=== PATIENT | female | born 2000 | race Caucasian/White ===

== ENCOUNTER 2020-06-18 00:21 | Outpatient (CLI) | payer OTHER, SELFPAY ==
[2020-06-18 17:38] LABS: SARS-CoV-2 RNA PCR Negative
== END 2020-06-18 00:22 | disposition home or self-care (01) ==
LOC: ANHCOVIDDT 00:21
PROVIDERS: Family Provider Family Medicine; PCP Family Medicine; Visit Provider Otolaryngology
DX: Z01.812 Encounter for preprocedural laboratory examination (principal); Z20.822 Contact with and (suspected) exposure to COVID-19; J03.90 Acute tonsillitis, unspecified
CPT/HCPCS: C9803; U0003; U0005

== ENCOUNTER 2020-06-21 00:46 | Day surgery (SDC) | payer OTHER, SELFPAY ==
[2020-06-15 15:41] VITALS: BMI 33.7
[2020-06-21] VITALS (8 sets, daily range): BP systolic 112–151; BP diastolic 64–93; PULSE 76–97; RESP 12–16; TEMP 36.3; O2SAT 97–100
[2020-06-21] MEDS: ACETAMINOPHEN 500 MG TABLET 1000 MG PO (06:26)
[2020-06-21] MEDS: LACTATED RINGERS 1,000 ML 30 ML IV CONT ×2 (06:37→08:05)
--- NOTE | 2020-06-21 07:04 | WPDANESEPPF ---
Anes - Initial Pre Proc Eval Procedure: Operation Date: 06/21/20 07:30 Proposed Procedures p Bilateral Tonsillectomy And Adenoidectomy - Reji Brito MD Date/Time: 06/21/20 07:04 Surgeon: Reji Brito MD Pre Op Diagnosis: Adenotonsillar Hypertrophy Patient Data Age: 19 Gender: F Height: 5 ft 4 in Weight: 90.5 kg Last Vital Signs Temp 97.3 F L 06/21/20 07:00 Pulse 93 06/21/20 07:00 Resp 16 06/21/20 07:00 BP 151/93 H 06/21/20 07:00 Pulse Ox 99 06/21/20 07:00 Allergies Allergy/AdvReac Type Severity Reaction Status Date / Time No Known Allergies Allergy Verified 06/21/20 06:12 Home Medications Medication Instructions Recorded Confirmed Type bupropion HCl 150 mg 24 hr tablet, 150 mg PO QAM #30 tablet 04/14/20 06/21/20 Rx extended release escitalopram oxalate 20 mg tablet 10 mg PO DAILY #90 tablet 04/14/20 06/15/20 Rx Patient hx anesthesia problems: none Family hx anesthesia problems: none [facility] Past Medical History Medical History (Updated 04/14/20 @ 14:22 by CASIMIRO Ferguson) Anxiety and depression Family History Family History Grandparent Family history of heart disease in male family member before age 55 Social History Social History Smoking status: Never smoker Alcohol intake: never Living arrangements: with family Spiritual care concerns: No Anes - Eval Final PreProcedure Day of Procedure 06/21/20 07:04 Patient weight: obese Heart: regular rate and rhythm Lungs: clear to auscultation Airway: Mallampati scale class II Neurological: alert and oriented Last oral intake: >/= 8 hours ASA classification: II Emergent: no Anesthetic plan: proceed Anesthesia type and monitoring: general ETT and standard monitoring Informed Consent: The patient's anesthetic plan and its attendant risks and benefits were discussed with the patient/family/POA. Questions were solicited and answers provided to the satisfaction of the patient/family/POA.
--- NOTE | 2020-06-21 07:22 | PM.IMHP ---
H&P: HPI History of Present Illness Date/Time: 06/21/20 07:22 Chief Complaint: chronic tonsillitis Narrative: Francoise St is a 19 year old female with adenotonsillar hypertrophy Review of Systems Review of Systems: All systems reviewed & are unremarkable except as noted in HPI and below PMFSH Past Medical History Medical History Anxiety and depression Family History Family History Grandparent Family history of heart disease in male family member before age 55 Social History Social History Smoking status: Never smoker Alcohol intake: never Living arrangements: with family Spiritual care concerns: No Meds Home Medications and Allergies Home Medications Medication Instructions Recorded Confirmed Type bupropion HCl 150 mg 24 hr tablet, 150 mg PO QAM #30 tablet 04/14/20 06/21/20 Rx extended release escitalopram oxalate 20 mg tablet 10 mg PO DAILY #90 tablet 04/14/20 06/15/20 Rx Allergies Allergy/AdvReac Type Severity Reaction Status Date / Time No Known Allergies Allergy Verified 06/21/20 06:12 Vital Signs Vital Signs - 24 hr 06/21/20 07:00 Temperature 36.3 C L Pulse Rate 93 Respiratory Rate 16 Blood Pressure 151/93 H Pulse Oximetry 99 Exam Narrative: Exam Narrative: 4+ tonsils. Obese. Rest of exam wnl. Assessment and Plan Assessment and plan (1) Tonsillitis with exudate: Code(s): J03.90 - Acute tonsillitis, unspecified Status: Acute Assessment and Plan: Chronic tonsillitis, adenotonsillar hypertrophy, here for T&A. Refer to outpatient H&P for full details.
--- NOTE | 2020-06-21 07:23 | WPDHPUPDATE1 ---
History and Physical Update Update Date/Time: 06/21/20 07:23 History and Physical has been reviewed, including an updated exam of the patient. There are NO changes in the patient's condition. Risks, benefits, and alternatives have been discussed and questions answered. Patient agrees to proceed with procedure.
--- NOTE | 2020-06-21 08:03 | P.OP_ITS ---
Procedure Note - Detailed Date of procedure: 06/21/20 Pre-op diagnosis: Adenotonsillar Hypertrophy Post-op diagnosis: same Procedure performed: Adenotonsillectomy Description of procedure: On the date of procedure the patient was met in the p reoperative area and risk and benefits of the procedure reviewed with the patient who elected to proceed with surgery. The patient was brought back to the room by the anesthesia team and placed under general endotracheal anesthesia. Once an adequate plane of anesthesia was obtained a timeout was performed to assure the patient identification the procedure to be performed were correct. The patient was then prepped and draped in the normal fashion for adenotonsillectomy. A head wrap and shoulder roll were placed. A Jagjit-Issa retractor was inserted into the patient's oral cavity and the patient was suspended from the [place] stand. The left tonsil grasped with a curved tonsillar tenaculum retracted medially and removed with electrocautery set on 10 standard. After the tonsil was removed the tonsillar fossa was inspected and no bleeding was noted. The right tonsil was then grasped with a curved tenaculum and retracted medially and removed in an identical manner. The tonsillar fossa was inspected and hemostasis was obtained with suction bovie electrocautery. A red rubber catheter was then inserted through the left nostril and used to retract the soft palate. The adenoids were viewed with the laryngeal mirror and were removed with suction Bovie set on 25 spray. After the adenoid was removed the nasopharynx was irrigated with normal saline. The red rubber catheter was removed. The patient was taken out of suspension and then placed back into suspension. The tonsillar fossas were once again inspected and no bleeding was noted. A tonsil sponge was used to gently abrade the area and no bleeding was noted. The patient was removed from suspension. The Jagjit-Issa retractor was removed from the patient's oral cavity. There was no damage to the patient's teeth or lips. Care of the patient was then returned to anesthesia who extubated in the operating room and transferred the patient to recovery in stable condition without complication. Anesthesia: GETA Surgeon: Reji Brito MD Estimated blood loss (mL): 20 Drains: No Packing: No Pathology: yes (right and left tonsil) Complications: No immediate complications Condition: stable Disposition: same day Findings: 3+ tonsils with stones
== END 2020-06-21 10:14 | disposition home or self-care (01) ==
PROVIDERS: Family Provider Family Medicine; PCP Family Medicine; Visit Provider Otolaryngology
PROC: (CPT 42826; principal; 2020-06-21 07:30)
DX: J35.01 Chronic tonsillitis (principal); F41.8 Other specified anxiety disorders
CPT/HCPCS: 42826; 88304; A9270; J0330; J2250; J2405; J2704; J3010; J7120

== ENCOUNTER 2020-08-11 17:47 | Outpatient (CLI) | payer OTHER, SELFPAY | END 2020-08-11 17:48 | disposition home or self-care (01) | LOC: ANHCOVIDVC 17:47 | PROVIDERS: PCP Family Medicine | DX: Z23 Encounter for immunization (principal) | CPT/HCPCS: 0001A; 91300 ==

== ENCOUNTER 2020-09-01 17:45 | Outpatient (CLI) | payer OTHER, SELFPAY | END 2020-09-01 17:46 | disposition home or self-care (01) | LOC: ANHCOVIDVC 17:45 | PROVIDERS: PCP Family Medicine | DX: Z23 Encounter for immunization (principal) | CPT/HCPCS: 0002A; 91300 ==

== ENCOUNTER 2023-02-01 05:23 | Emergency (ER) | payer BC, SELFPAY ==
--- NOTE | ~2023-02-01 | CT_ITS ---
CT of the Abdomen and Pelvis: Indication: Abdominal pain Technique: 2.5 mm axial scans were obtained through the abdomen and pelvis following intravenous adm inistration of 100 cc of Omnipaque 350. Dose reduction technique was used on this scan by utilizing a utomated exposure control and iterative reconstruction technique. The dose-length product (DLP) was 6 76.00 mGy-cm. Findings: Scans through the lung bases are unremarkable. The liver, spleen, pancreas, adrenals and kidneys are within normal limits. Questionable minimal gall bladder wall thickening. No evidence of aortic aneurysm. No lymphadenopathy. No bowel obstruction or bowel wall thickening. There is no evidence to suggest acute appendicitis. Images through the pelvis were performed. Urinary bladder unremarkable. IUD in place. No adnexal mass seen. No ascites. There are bilateral L5 pars interarticularis defects, without subluxation. Impression: Questionable minimal gallbladder wall thickening. If there is clinical concern for gallbladder pathol ogy, then consider ultrasound and/or HIDA scan for further evaluation. IUD in place. Bilateral L5 pars interarticularis defects. Reviewed, dictated and finalized at location M. Impression: Questionable minimal gallbladder wall thickening. If there is clinical concern for gallbladder pathology, then consider ultrasound and/or HIDA scan for furthe r evaluation. IUD in place. Bilateral L5 pars interarticularis defects.
--- NOTE | ~2023-02-01 | US_ITS ---
Limited Abdominal Sonogram: Real-time sonographic imaging of the right upper quadrant was performed. Clinical History: Cholecystitis Findings: The liver appears normal with no evidence of mass lesion or bile duct dilatation. Main por bg vein demonstrates normal direction of flow. The gallbladder is well distended, and appears normal with no evidence of gallstone or wall thickening. The common bile duct measures 5 mm. The visualize d pancreas, aorta, and IVC are unremarkable. Impression: No significant abnormality seen. Reviewed, dictated and finalized at location . Impression: No significant abnormality seen.
[2023-02-01 05:30] VITALS: BP 141/96; PULSE 85; RESP 16; TEMP 36.8; O2SAT 100
--- NOTE | 2023-02-01 05:34 | ECG_ITS ---
Measurements Intervals [place] Rate: 83 P: 34 DC: 154 QRS: -35 QRSD: 92 T: 15 QT: 350 QTc: 411 Interpretive Statements SINUS RHYTHM LEFT AXIS DEVIATION BORDERLINE R WAVE PROGRESSION, ANTERIOR LEADS BORDERLINE T WAVE ABNORMALITY- ANT/INF LEADS BASELINE ARTIFACT- I, II, AVR, V5-V6 BORDERLINE ECG NO PREVIOUS ECG AVAILABLE FOR COMPARISON Electronically Signed On 02-01-2023 8:29:04 CDT by Jena-Claude Stroud D.O.
[2023-02-01 05:49] LABS: Basophils Absolute Auto 0.1 K/mm3 (0.0-0.1); Basophils Percent Auto 0.7 % (0.2-1.2); Eosinophils Absolute Auto 0.1 K/mm3 (0-0.3); Eosinophils Percent Auto 1.2 % (0-4.4); Hematocrit 43.8 % (37.0-47.0); Hemoglobin 14.6 g/dL (12.0-15.0); Immature Granulocyte Absolute 0.01 K/mm3 (0.00-0.031); Immature Granulocyte Percent A 0.1 % (0-0.5); Lymphocytes Absolute Auto 1.94 K/mm3 (0.9-3.2); Lymphocytes Percent Auto 21.3 % (18.3-44.2); Mean Corpuscular HGB Conc 33.3 g/dl (32-36); Mean Corpuscular Hemoglobin 30.4 pg (26-34); Mean Corpuscular Volume 91.1 fl (80-100); Mean Platelet Volume 9.7 fl (7.4-10.4); Monocytes Absolute Auto 0.6 K/mm3 (0.1-0.6); Monocytes Percent Auto 6.2 % (2.6-8.5); Neutrophils Absolute Auto 6.4 K/mm3 (1.3-6.7); Neutrophils Percent Auto 70.5 % (45.5-73.1); Platelet Count Result 345 k/mm3 (150-375); Red Blood Count 4.81 M/mm3 (4.2-5.4); Red Cell Distribution Width 12.1 % (11.5-14.5); White Blood Count 9.1 K/mm3 (4.5-10.0)
[2023-02-01 06:03] LABS: Alanine Aminotransferase 63 U/L (6-35); Albumin Level 4.7 g/dL (3.5-5.1); Alkaline Phosphatase 62 U/L (38-126); Anion Gap 11 mmol/L (8-16); Aspartate Amino Transferase 44 U/L (14-36); Bilirubin,Total 0.4 mg/dL (0.2-1.3); Blood Urea Nitrogen 11 mg/dL (7-17); Calcium 9.5 mg/dL (8.4-10.2); Carbon Dioxide 26 mmol/L (22-30); Chloride 101 mmol/L (98-107); Estimated CRCL calculation 115 ml/min; Estimated Glomerular Filt Rate > 60; Glucose 99 mg/dL (65-110); Lipase 120 U/L (23-300); Potassium 3.5 mmol/L (3.4-5.0); Sodium 138 mmol/L (137-145)
[2023-02-01 06:12] LABS: Troponin I < 0.012 ng/mL (0.000-0.034)
[2023-02-01 06:53] VITALS: BP 142/102; PULSE 76; RESP 15; O2SAT 99
--- NOTE | 2023-02-01 07:26 | ED.ABDPAIN ---
HPI - Abdominal Pain General Chief Complaint: Abdominal Pain Stated Complaint: abdominal pain Time Seen by Provider: 02/01/23 07:26 Source: patient and family Mode of arrival: ambulatory Limitations: no limitations History of Present Illness HPI narrative: 22 years old white female presents with epigastric pain woke her up from sleep at 3:30 AM. Sharp, pressure kind, worse with movement. She denies any fever, chills, nausea, vomiting, diarrhea, constipation or recent new physical activities. History of depression and anxiety. Does not smoke or drink or uses drugs, IUD, pain was 8 out of 10. Currently 0 out of 10. she denies relieving factors. History of heartburn with intermittent use of [id number]-[id number] medications. Related Data Allergies Allergy/AdvReac Type Severity Reaction Status Date / Time No Known Allergies Allergy Verified 02/01/23 06:54 Review of Systems Review of Systems: All systems reviewed & are unremarkable except as noted in HPI and below PMFSH Past Medical History Medical History Anxiety and depression BMI 37.0-37.9, adult Family History Family History Grandparent Family history of heart disease in male family member before age 55 Father No problems noted. Mother No problems noted. Sibling No problems noted. Social History Social History Smoking status: Never smoker Alcohol intake: never Living arrangements: with family Spiritual care concerns: No Exam Narrative: General appearance: Well-developed, well-nourished Skin: Normal color Head: Normocephalic, nontraumatic Eyes: Clear conjunctiva ENT: Oropharynx normal, ears normal, nose normal Neck: Supple, nontender Chest and respiratory: Airway patent, no respiratory distress, no accessory muscle use Heart: Regular rate/rhythm Abdomen: Soft, slight tenderness right upper quadrant, no guarding or rebound r, no organomegaly, quiet bowel sounds Vascular: Normal peripheral pulses, normal capillary refill. Musculoskeletal: Normal range of motion, nontender back Neurologic: Alert and oriented ?3, SECURITY COORDINATOR is normal as tested, no gross motor deficit Course Reevaluation(s) Reevaluation #1: Currently patient feeling no pain, currently 0 out of 10 compared to 8 out of 10 on arrival to the ED. Date: 02/01/23 Time: 10:45 Vital Signs Vital signs: Vital Signs Temperature 36.8 C 02/01/23 05:30 Pulse Rate 85 02/01/23 05:30 Respiratory Rate 16 02/01/23 05:30 Blood Pressure 141/96 H 02/01/23 05:30 Pulse Oximetry 100 02/01/23 05:30 Oxygen Delivery Room Air 02/01/23 05:30 Temperature 36.8 C 02/01/23 05:30 Pulse Rate 90 02/01/23 10:35 Respiratory Rate 17 02/01/23 10:35 Blood Pressure 124/101 H 02/01/23 10:35 Pulse Oximetry 99 02/01/23 10:35 Oxygen Delivery Room Air 02/01/23 05:30 MDM - Abdominal Pain MDM Narrative Medical decision making narrative: Patient presents with the above complaint Physical examination was remarkable for some tenderness at the right upper quadrant, cholecystitis is a possibility. Differential diagnoses include cholecystitis, cholelithiasis, urinary tract infection, pancreatitis, GERD, constipation. Work-up today includes CBC, CMP, lipase, urine analysis, CT abdomen pelvis with IV contrast showed possible thickening of the wall of the gallbladder, Lab Data 02/01/23 05:39 02/01/23 05:39 Labs: Lab Results 02/01/23 02/01/23 Range/Units 05:39 07:32 WBC 9.1 (4.5-10.0) K/mm3 RBC 4.81
[2023-02-01] MEDS: ONDANSETRON INJ 4 MG/2 ML VIAL IV PUSH (07:34)
[2023-02-01] MEDS: SODIUM CHLORIDE 0.9% IV 1,000 ML 999 ML IV CONT (07:34)
[2023-02-01] MEDS: HYDROmorphone HCL INJ (*CRX) 1 MG/ML SYR 0.5 MG IV PUSH (07:35)
[2023-02-01 07:37] VITALS: BP 136/98; PULSE 84; RESP 18; O2SAT 98
[2023-02-01 07:51] LABS: Appearance Urine Cloudy (Clear); Bacteria Urine None Seen /hpf; Bilirubin Urine Negative (Negative); Blood Urine Negative (Negative); Color Urine Yellow (Yellow); Glucose Urine UA Negative (Negative); Ketones Urine Negative (Negative); Leukocyte Esterase Ur Negative LEU/UL (Negative); Nitrate Urine Negative (Negative); Non Pathogenic Casts 0-2; Protein Urine Negative (Negative); RBC Urine 0-2 /hpf (0-2); Specific Grav Ur 1.014 (1.001-1.035); Squamous Epithelial Cell Urine None seen /hpf (Few); Urobilinogen Urine 0.2 mg/dL (<2.0); WBC Urine 0-5 /hpf; pH Urine 6.5 (5.0-9.0)
[2023-02-01 08:00] LABS: Add Urine Microscopic? YES
[2023-02-01 08:39] VITALS: BP 132/98; PULSE 85; RESP 15; O2SAT 99
--- NOTE | 2023-02-01 09:15 | PC.NURSE ---
US in room with pt at this time
[2023-02-01 09:42] VITALS: BP 134/75; PULSE 64; RESP 18; O2SAT 100
[2023-02-01 10:35] VITALS: BP 124/101; PULSE 90; RESP 17; O2SAT 99
== END 2023-02-01 10:48 | disposition home or self-care (01) ==
PROVIDERS: Student in an Organized Health Care Education/Training Program; Emergency Provider Emergency Medicine; PCP Family Medicine
DX: R10.13 Epigastric pain (principal); Z97.5 Presence of (intrauterine) contraceptive device; R94.31 Abnormal electrocardiogram [ECG] [EKG]
CPT/HCPCS: 36415; 74177; 76705; 80053; 81001; 81025; 83690; 84484; 85025; 93005; 96361; 96374; 96375; 99284; J1170; J2405; J7030; Q9967

== ENCOUNTER 2023-06-05 09:30 | Outpatient (CLI) | payer BC, SELFPAY ==
--- NOTE | ~2023-06-05 | NM_ITS ---
EXAMINATION: NM hepatobiliary wo pharm DATE: 06/05/2023 12:41 INDICATION: Right upper quadrant abdominal pain. COMPARISON: Ultrasound 02/01/2023 TECHNIQUE: 4.6 mCi Tc-99m mebrofenin (Choletec) was administered intravenously. Scintigraphic images of the abdomen were obtained for one hour. Then, the patient drank 8 oz Ensure, and imaging was cont inued for 60 minutes. FINDINGS: There is normal clearance of radiotracer from the blood pool. There is homogeneous tracer u ptake by the liver. Activity progresses to the bowel and gallbladder. Gallbladder ejection fraction (GBEF) was 6%. Note that with this technique, normal GBEF >= 33%. IMPRESSION: 1. Low gallbladder ejection fraction, consistent with gallbladder dysfunction and/or chronic cholecy stitis. Reviewed, dictated and finalized at location A. POINT SPLITTER IMPRESSION: 1. Low gallbladder ejection fraction, consistent with gallbladder dysfunction and/or chronic cholecystitis.
== END 2023-06-05 09:31 | disposition home or self-care (01) ==
PROVIDERS: PCP Family Medicine; Visit Provider Physician Assistant
DX: R10.11 Right upper quadrant pain (principal); R93.2 Abnormal findings on diagnostic imaging of liver and biliary tract
CPT/HCPCS: 78226; A9537

== ENCOUNTER 2023-06-05 23:19 | Emergency (ER) | payer BC, SELFPAY ==
--- NOTE | ~2023-06-05 | CT_ITS ---
CT of the Abdomen and Pelvis: Indication: Abdominal pain Technique: 2.5 mm axial scans were obtained through the abdomen and pelvis following intravenous adm inistration of 100 cc of Omnipaque 350. Dose reduction technique was used on this scan by utilizing a utomated exposure control and iterative reconstruction technique. The dose-length product (DLP) was 9 21.68 mGy-cm. COMPARISON: 02/01/2023 Findings: Scans through the lung bases are unremarkable. The liver, spleen, pancreas, gallbladder, adrenals and kidneys are within normal limits. No evidence of aortic aneurysm. No lymphadenopathy. No bowel obstruction or bowel wall thickening. There is no evidence to suggest acute appendicitis. Images through the pelvis were performed. Urinary bladder unremarkable. IUD in place. No adnexal mass seen. No ascites. Bilateral pars interarticularis defects at L5 are again noted. Impression: No acute abnormality. IUD in place. Reviewed, dictated and finalized at [facility]. STMENT BROKER Impression: No acute abnormality. IUD in place.
[2023-06-05 23:28] VITALS: BP 120/71; PULSE 77; RESP 20; TEMP 37; O2SAT 100
[2023-06-06 00:48] LABS: Basophils Percent Auto 0.3 % (0.2-1.2); Eosinophils Percent Auto 0.3 % (0-4.4); Hematocrit 41.6 % (37.0-47.0); Hemoglobin 13.4 g/dL (12.0-15.0); Immature Granulocyte Absolute 0.06 K/mm3 (0.00-0.031); Immature Granulocyte Percent A 0.4 % (0-0.5); Lymphocytes Absolute Auto 1.59 K/mm3 (0.9-3.2); Lymphocytes Percent Auto 11.2 % (18.3-44.2); Mean Corpuscular HGB Conc 32.2 g/dl (32-36); Mean Corpuscular Hemoglobin 29.9 pg (26-34); Mean Corpuscular Volume 92.9 fl (80-100); Mean Platelet Volume 9.4 fl (7.4-10.4); Monocytes Absolute Auto 0.5 K/mm3 (0.1-0.6); Monocytes Percent Auto 3.6 % (2.6-8.5); Neutrophils Absolute Auto 11.9 K/mm3 (1.3-6.7); Neutrophils Percent Auto 84.2 % (45.5-73.1); Platelet Count Result 348 k/mm3 (150-375); Red Blood Count 4.48 M/mm3 (4.2-5.4); Red Cell Distribution Width 12.2 % (11.5-14.5); White Blood Count 14.2 K/mm3 (4.5-10.0)
[2023-06-06 01:11] LABS: Alanine Aminotransferase 52 U/L (6-35); Albumin Level 4.8 g/dL (3.5-5.1); Alkaline Phosphatase 60 U/L (38-126); Anion Gap 12 mmol/L (8-16); Aspartate Amino Transferase 38 U/L (14-36); Bilirubin,Total 0.6 mg/dL (0.2-1.3); Blood Urea Nitrogen 14 mg/dL (7-17); Calcium 9.8 mg/dL (8.4-10.2); Carbon Dioxide 24 mmol/L (22-30); Chloride 103 mmol/L (98-107); Estimated CRCL calculation 115 ml/min; Estimated Glomerular Filt Rate > 60; Glucose 142 mg/dL (65-110); Lipase 67 U/L (23-300); Potassium 3.7 mmol/L (3.4-5.0); Sodium 139 mmol/L (137-145)
--- NOTE | 2023-06-06 01:26 | ED.ABDPAIN ---
HPI - Abdominal Pain General Chief Complaint: Abdominal Pain <SEE Cano Last Filed: 06/06/23 17:24> Stated Complaint: abd pain <SEE Cano Last Filed: 06/06/23 17:24> Time Seen by Provider: 06/06/23 00:32 <SEE Cano Last Filed: 06/06/23 17:24> Source: patient <SEE Cano Last Filed: 06/06/23 17:24> Mode of arrival: ambulatory <SEE Cano Last Filed: 06/06/23 17:24> Limitations: no limitations <SEE Cano Last Filed: 06/06/23 17:24> History of Present Illness HPI narrative: This is a 22 year old female that presents to the ER for epigastric pain tonight. Associated with nausea and vomiting. Reports she has been having episodes like this recently and had a HIDA scan outpatient today ordered by her PCP. Denies fevers. <SEE Cano Last Filed: 06/06/23 17:24> Related Data Home Medications: Home Medications Medication Instructions Recorded Confirmed lisdexamfetamine 50 mg capsule 50 mg PO DAILY 05/30/23 (Vyvanse) <Eva De Los Santos PA-C - Last Filed: 06/06/23 17:24> Allergies/Adverse Reactions: Allergies Allergy/AdvReac Type Severity Reaction Status Date / Time No Known Allergies Allergy Verified 05/30/23 07:55 <SEE Cano Last Filed: 06/06/23 17:24> Review of Systems Review of Systems: CONSTITUTIONAL: Denies fever GASTROINTESTINAL: Reports abdominal pain, nausea, vomiting. Denies diarrhea. GENITOURINARY: Denies dysuria <SEE Cano Last Filed: 06/06/23 17:24> All systems reviewed & are unremarkable except as noted in HPI and below <SEE Cano Last Filed: 06/06/23 17:24> [facility] Past Medical History Medical History: Medical History Anxiety and depression BMI 34.0-34.9,adult BMI 37.0-37.9, adult <Eva De Los Santos PA-C - Last Filed: 06/06/23 17:24> Family History Family History: Family History Grandparent Family history of heart disease in male family member before age 55 Father No problems noted. Mother No problems noted. <Eva De Los Santos PA-C - Last Filed: 06/06/23 17:24> Social History Social History: Social History Smoking status: Never smoker Second hand tobacco smoke exposure: No Alcohol intake: never Substance use: never Substance use type: does not use Do You Feel Safe in your Home?: Yes Lack of Transportation: No Lack of Food: Never True Current Housing: I Have Housing Concerned About Future Housing: No Difficulty Paying Gas/Electric Bills: No Difficulty Paying for Meds: No Currently Unemployed: No Education: High School Diploma/GED Difficulty w/ Childcare or Family Care: No Living arrangements: with family Occupation/Education: occupation 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 HEAD: Normocephalic, atraumatic. EYES: EOMI. CHEST: Clear to auscultation. No respiratory distress. No wheezes rales or rhonchi HEART: Regular rate and rhythm. No murmur heard. Normal peripheral pulses. ABDOMEN: Soft, nondistended, normal active bowel sounds. Mild tenderness to palpation in the RUQ without guarding EXTREMITIES: Normal range of motion. No edema. SKIN: Warm, dry, no rash. NEURO: No focal deficits. Alert and oriented x3. PSYCH: Normal mood and affect <Eva De Los Santos PA-C - Last Filed: 06/06/23 17:24> Course Course Emergency Course: Patient was signed out pending results of CT scan that showed no acute changes <Antonio Morfin MD - Last Filed: 06/06/23 05:46> Consultat
[2023-06-06] MEDS: MORPHINE SULFATE (*CRX) 4 MG/ML INJ IV PUSH (01:39)
[2023-06-06] MEDS: SODIUM CHLORIDE 0.9% IV 1,000 ML 999 ML IV CONT (01:39)
[2023-06-06] MEDS: ONDANSETRON INJ 4 MG/2 ML VIAL IV PUSH (01:40)
[2023-06-06 02:00] VITALS: BP 120/74; PULSE 66; RESP 14; O2SAT 97
[2023-06-06 02:54] LABS: Add Urine Microscopic? NO; Appearance Urine Clear (Clear); Bilirubin Urine Negative (Negative); Blood Urine Negative (Negative); Color Urine Yellow (Yellow); Glucose Urine UA Negative (Negative); Ketones Urine 4+ mg/dL (Negative); Leukocyte Esterase Ur Negative LEU/UL (Negative); Nitrate Urine Negative (Negative); Protein Urine Negative (Negative); Specific Grav Ur 1.025 (1.001-1.035); Urobilinogen Urine 0.2 mg/dL (<2.0); pH Urine 7.5 (5.0-9.0)
[2023-06-06] MEDS: PANTOPRAZOLE SODIUM IV 40 MG VIAL IV PUSH (02:58)
[2023-06-06] MEDS: KETOROLAC 15 MG/ML VIAL (*BKC) IV PUSH (03:21)
[2023-06-06 04:00] VITALS: BP 116/76; PULSE 76; RESP 14; O2SAT 98
== END 2023-06-06 06:11 | disposition home or self-care (01) ==
PROVIDERS: Emergency Provider Physician Assistant; PCP Family Medicine
DX: K80.50 Calculus of bile duct without cholangitis or cholecystitis without obstruction (principal); F41.9 Anxiety disorder, unspecified; F32.A Depression, unspecified
CPT/HCPCS: 36415; 74177; 78226; 80053; 81003; 81025; 83690; 85025; 96361; 96374; 96375; 99284; A9537; C9113; J1885; J2270; J2405; J7030; Q9967

== ENCOUNTER 2023-07-02 16:44 | Outpatient (CLI) | payer BC, SELFPAY ==
[2023-07-02 17:17] LABS: Amylase 71 U/L (30-110)
== END 2023-07-02 16:45 | disposition home or self-care (01) ==
PROVIDERS: PCP Family Medicine; Visit Provider Surgery
DX: K82.8 Other specified diseases of gallbladder (principal); Z01.818 Encounter for other preprocedural examination
CPT/HCPCS: 36415; 82150

== ENCOUNTER 2023-07-04 00:51 | Day surgery (SDC) | payer BC, SELFPAY ==
[2023-06-27 14:35] VITALS: BMI 32.9
--- NOTE | 2023-06-27 14:39 | PC.NURSE ---
Report to the Outpatient Waiting Room, entrance under the green pavilion located off [facility], at time 7:30 on date 07/04/23. Planned Procedure Time: 9:30. Time changes happen often and if your time is changed the preop area will call you the afternoon before. - You and your visitor will be asked to self-screen and do not enter if you have any COVID symptoms. - A mask is optional within the hospital at this time. Patients may have clear liquids (water, carbonated beverages, clear teas, apple juice) until 3 hours prior to surgery (6:30) with a maximum of 20 ounces. - No food from midnight until time of surgery Take the following medications with a SIP of water the morning of surgery: WELLBUTRIN, ZOLOFT DO NOT STOP ANY OF YOUR OTHER PRESCRIPTION MEDICATIONS PRIOR TO SURGERY ?EXCEPT THE FOLLOWING Medications to discontinue per physician: N/A Date to take last dose: N/A Please no make-up, nail niuean, hairspray, perfume, deodorant, or body powder the day of surgery. No jewelry (including any body piercings) or valuables the day of surgery, leave them at home. Please take a shower or bath the night before, or the morning of, surgery with an antibacterial soap. Wear comfortable, loose fitting clothing. - Jewelry must be removed prior to entering the operating room. Rings and piercings that are not removed may be cut off. - The hospital will not accept responsibility for valuables. - Please leave all valuables, including medications, at home the day of surgery. If you are going home after surgery, a licensed [employer] driver must drive you home. - NO public transportation without another adult if you receive anesthesia. - We recommend that an adult stay with you for 24 hours following discharge. - We also recommend that you do not drive, make important decision, drink alcoholic beverages, or take any drugs that were not prescribed by your health care provider for at least 24 hours after your discharge time. Follow any additional instructions given to you from your surgeon. If you or anyone in your household have experienced Covid symptoms in the past week, please notify your surgeon or the nurse liaison at the phone number below for possible testing. Telephone instructions given to PT - CHRIS LEWIS and asked if any additional questions and then verbalized understanding. Patient advised to call surgeon office or pre surgery nurse liaison [phone] if any additional questions.
[2023-07-04] VITALS (10 sets, daily range): BP systolic 117–145; BP diastolic 73–90; PULSE 71–103; RESP 12–16; TEMP 36.3–36.6; O2SAT 99–100
[2023-07-04] MEDS: ACETAMINOPHEN 500 MG TABLET 1000 MG PO (08:30)
[2023-07-04] MEDS: INDOCYANINE GREEN 25 MG VIAL WITH DILUENT 3.75 MG IV PUSH (08:30)
[2023-07-04] MEDS: KETOROLAC 15 MG/ML VIAL (*BKC) IV PUSH (08:30)
[2023-07-04] MEDS: LACTATED RINGERS 1,000 ML 30 ML IV CONT ×2 (08:30→11:05)
--- NOTE | 2023-07-04 09:03 | WPDANESEPPF ---
Anes - Initial Pre Proc Eval Procedure: Operation Date: 07/04/23 09:30 Proposed Procedures p Laparoscopic Cholecystectomy Davinci Assisted, Possible Open - Kyree Nettles DO Date/Time: 07/04/23 09:03 Surgeon: Kyree Nettles DO Pre Op Diagnosis: Biliary Dyskinesia Patient Data Age: 22 Gender: F Height: 1.63 m Weight: 87.7 kg Allergies Allergy/AdvReac Type Severity Reaction Status Date / Time No Known Allergies Allergy Verified 06/27/23 14:34 Home Medications Medication Instructions Recorded Confirmed Type bupropion HCl 300 mg 24 hr tablet, 300 mg PO QAM #30 tabs 10/05/22 06/27/23 Rx extended release lisdexamfetamine 50 mg capsule 50 mg PO DAILY 05/30/23 06/27/23 History (Vyvanse) omeprazole 40 mg capsule,delayed 40 mg PO DAILY #30 caps 05/30/23 06/27/23 Rx release sertraline 50 mg tablet 50 mg PO DAILY 06/07/23 06/27/23 History rimegepant 75 mg disintegrating 75 mg PO .COMPLEX PRN migraine 06/21/23 06/27/23 Rx tablet (Nurtec ODT) headache #30 tabs Patient hx anesthesia problems: none Family hx anesthesia problems: none Results Review: All pre-operative results and documents have been reviewed as part of the pre-operative evaluation. [facility] Past Medical History Medical History Anxiety and depression BMI 34.0-34.9,adult BMI 37.0-37.9, adult Surgical History Surgical History Hx of tonsillectomy Hx of wisdom tooth extraction Family History Family History Grandparent Family history of heart disease in male family member before age 55 Father No problems noted. Mother No problems noted. Social History Social History Smoking status: Never smoker Second hand tobacco smoke exposure: No Alcohol intake: never Alcohol use details: rarely Substance use: never Substance use type: does not use Do You Feel Safe in your Home?: Yes Lack of Transportation: No Lack of Food: Never True Current Housing: I Have Housing Concerned About Future Housing: No Difficulty Paying Gas/Electric Bills: No Difficulty Paying for Meds: No Currently Unemployed: No Education: High School Diploma/GED Difficulty w/ Childcare or Family Care: No Living arrangements: with friend(s) Additional living arrangements comments: BOYFRIEND Occupation/Education: occupation 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 Informed Consent: The patient's anesthetic plan and its attendant risks and benefits were discussed with the patient/family/POA. Questions were solicited and answers provided to the satisfaction of the patient/family/POA.
--- NOTE | 2023-07-04 09:08 | P.HPUP_ITS ---
History and Physical Update Update Date/Time: 07/04/23 09:08 History and Physical has been reviewed, including an updated exam of the patient. There are NO changes in the patient's condition. The only change the plan is that we will proceed with laparoscopic cholecystectomy, da Akash as sisted. Remainder of the assessment and plan remains unchanged. Risks, benefits, and alternatives have been discussed and questions answered. Patient agrees to proceed with procedure.
[2023-07-04] MEDS: ceFAZolin 2 GM/D5W 50 ML 2 GM/50 ML BAG IVPB (09:34)
[2023-07-04] MEDS: BUPIVACAINE/EPINEPHRINE 0.5% 50 ML VIAL 30 ML INFILTRATE (10:02)
--- NOTE | 2023-07-04 10:29 | W.PM.PROC2 ---
Procedure Note - Detailed Date of Procedure 07/04/23 Pre-op Diagnosis Biliary Dyskinesia Post-op Diagnosis Other (Chronic calculous cholecystitis) Procedure Performed 1. Laparoscopic cholecystectomy with cholangiography, da Akash assisted 2. Interpretation of cholangiography Surgeon Kyree Nettles, DO Anesthesia General and Local (0.5% bupivacaine) Indications This is a 22-year-old woman who presented with recurrent right upper quadrant abdominal pains. This had been going on for about fiber 6 months. She noticed this particularly after eating fried or fatty foods. An abdominal CT had previously shown possible signs of chronic cholecystitis. Ultrasound was normal and there was no evidence of cholelithiasis. A HIDA scan was then obtained and this showed a gallbladder ejection fraction of 6%. Discussions were made with the patient about treatment options and decision was made to proceed with robotic assisted laparoscopic cholecystectomy with cholangiography. Findings Laparoscopic cholecystectomy with cholangiography was performed. The patient received 1.5 mL of indocyanine green intravenously preop. Near infrared fluorescence imaging was used to assess the biliary anatomy. The cystic duct was clearly identified and care was taken to dissect in a safe zone away from the common bile duct. The cystic duct appeared normal in size. There were a few small pericholecystic adhesions. There did also appear to be a couple small gallstones within the gallbladder. The gallbladder was removed and sent to the lab for pathology. Description of Procedure Procedure as well as risks, benefits, and alternatives were discussed with the patient. Written consent was obtained and placed in chart prior to procedure. 1.5 mL of indocyanine green was given intravenously in preop. Patient was brought back to surgical suite. She was placed supine on operating table. Time-out was done to confirm patient and procedure. She was then intubated by the anesthesia department. Her abdomen was then prepped and draped in sterile fashion using chlorhexidine prep. 0.5% bupivacaine was infiltrated locally at the site of each port placement. An 8 mm incision was made just superior to the umbilicus and a 5 mm Optiview trocar was then advanced through the abdominal layers under direct visualization. Once inside the abdominal cavity, carbon dioxide insufflation was used to create a pneumoperitoneum. The camera was inserted and the abdomen was inspected. No mediated abnormalities were noted. The patient was placed in 10? reverse Trendelenburg position and rotated 10? to the left. Two 8 mm incisions were made in the right lateral abdomen and 2 8 mm trocars were inserted under direct visualization. A 12 mm incision was made in the left lateral abdomen and a 12 mm trocar was inserted under direct visualization. The 5 mm Optiview trocar was then removed and another 8 mm trocar was inserted in its place. The robotic arms were then brought up to the patient's bedside and secured to each port. The camera and instruments were inserted. I then moved over to the robotic consult to take control of the camera and instruments. The gallbladder was grasped at the fundus and retracted cephalad. The infundibulum of the gallbladder was then grasped and retracted laterally. Hook electrocautery was then used to carefully dissect around the neck of the gallbladder. The cystic duct was identified and a window was created around it using hook electrocautery. The cystic artery was also identified and a window was created behind it using hook electrocautery. Critical view of safety was identified visualizing the cystic duct running directly into the neck of the gallbladder and the cystic artery running directly into the wall the gallbladder. The camera view was switched to firefly mode and the indocyanine green within the gallbladder and cystic duct was clearly visualized. No other structures were noted run
[2023-07-04] MEDS: SCOPOLAMINE 1 MG PATCH 1 PATCH TRANSDERM (10:31)
[2023-07-04] MEDS: oxyCODONE HCL (*CRX) 5 MG TAB IR PO (12:05)
[2023-07-04] MEDS: ONDANSETRON INJ 4 MG/2 ML VIAL IV PUSH (12:08)
== END 2023-07-04 13:01 | disposition home or self-care (01) ==
PROVIDERS: PCP Family Medicine; Visit Provider Surgery
PROC: 0FT44ZZ Resection of Gallbladder, Percutaneous Endoscopic Approach (ICD-10-PCS; CPT 47562; principal; 2023-07-04 09:30)
DX: K80.10 Calculus of gallbladder with chronic cholecystitis without obstruction (principal); F41.8 Other specified anxiety disorders; E66.9 Obesity, unspecified; Z68.33 Body mass index [BMI] 33.0-33.9, adult
CPT/HCPCS: 47563; 74300; 36415; 82150; 86850; 86900; 86901; 88304; A9270; J0330; J0690; J1100; J1885; J2250; J2405; J2704; J3010; J7120